=== PATIENT | female | born 1960 | race Two or more races ===

== ENCOUNTER 2024-06-05 13:06 | Emergency (ER) | payer OTHER ==
[~2024-06-05] VITALS: Ht 149.9 cm; Wt 54.4 kg
[2024-06-05] MEDS ORDERED: SYNTHROID88 MCG PO (14:00)
[2024-06-05] MEDS ORDERED: LACTOBACILLUS ACIDOPHILUS 1 CAP CAP PO ONE (14:45)
[2024-06-05] MEDS ORDERED: 0.9 % SODIUM CHLORIDE 500 ML IV ONE (14:45)
[2024-06-05 15:26] LABS: HEMATOCRIT 45.3 % (36.0-45.00); HEMOGLOBIN 15.2 g/dL (12.0-15.00); MEAN CELL VOLUME 86.5 fL (80.00-100.00); MEAN CORPUSCULAR HEMOGLOBIN 29.1 pg (27.00-32.0); MEAN CORPUSCULAR HGB CONC 33.6 g/dl (32.0-36.0); PLATELET COUNT 279 K/uL (150-450); RED BLOOD COUNT 5.23 M/uL (4.00-6.00); RED CELL DISTRIBUTION WIDTH 13.9 % (11.5-14.5)
[2024-06-05 15:55] LABS: ALBUMIN 3.7 gm/dL (3.4-5.0); BILIRUBIN TOTAL 0.46 mg/dL (0.3-1.2); CALCIUM 8.9 mg/dL (8.5-10.1); CREATININE SERUM 0.88 mg/dL (0.55-1.02); GFR 64.69; GLOBULINA 3.9 G/DL (2.4-3.5); POTASSIUM 4.16 mEq/L (3.5-5.1); TOTAL PROTEIN 7.6 gm/dL (6.4-8.2)
[2024-06-05 17:46] LABS: PH,URINE 5.5 (5.0-8.0); URINE APPEARANCE Clear; URINE BILIRRUBIN Negative (NEGATIVE); URINE BLOOD Negative; URINE COLOR Yellow; URINE GLUCOSE Negative (NEGATIVE); URINE LEUKOCYTE Trace; URINE NITRATE Negative; URINE PROTEIN Trace (NEGATIVE); URINE UROBILINOGEN 0.2 E.U./dl
[2024-06-05 17:51] LABS: URINE BACTERIA 57.9 uL (0.0-1933); URINE EPITHELIAL CELLS 41.2 uL (0.0-38.8); URINE RBC 15.2 uL (0.0-20.8); URINE WBC 15.7 uL (0.0-23.2)
[2024-06-05 18:08] LABS: URINE KETONE 40 (NEGATIVE)
[2024-06-05] MEDS ORDERED: ANUSOL-HC30 G2 TOP (19:21)
== END 2024-06-05 20:43 | disposition home or self-care (01) ==
LOC: ER 13:08
PROVIDERS: Nurse Practitioner Family
DX: K64.9 Unspecified hemorrhoids (principal); K62.5 Hemorrhage of anus and rectum; R10.31 Right lower quadrant pain; Z20.822 Contact with and (suspected) exposure to COVID-19; E03.8 Other specified hypothyroidism
CPT/HCPCS: 36415; 74177; Q9965

== ENCOUNTER → 2024-10-12 | Emergency (ER) | payer OTHER ==
[~2024-10-12] VITALS: Ht 144.8 cm; Wt 54.4 kg
[~2024-10-12] MED LIST: ANUSOL-HC30 G2 TOP; SYNTHROID88 MCG PO
== END | disposition left against medical advice (07) ==
LOC: ER 18:08
DX: Z53.21 Procedure and treatment not carried out due to patient leaving prior to being seen by health care provider (principal)